=== PATIENT | female | born 1970 | race Caucasian/White ===

== ENCOUNTER 2017-03-27 16:56 | Emergency (ER) | payer BC ==
[~2017-03-27 16:56] MED LIST: ASAB PO; LAM250 PO; NITROSTAT0.4 MG SL; NORCO1 TA1 PO; PROTONIX PO; [UNRECOGNIZED DRUG - OTHER]
[2017-03-27 17:17] LABS: BASOPHILS 0.6 %; BASOPHILS ABSOLUTE 0.05 10/3/uL (0.0-0.16); EOSINOPHILS 5.4 %; EOSINOPHILS ABSOLUTE 0.47 10/3/uL (0.0-0.53); HEMATOCRIT 41.5 % (36.0-48.0); HEMOGLOBIN 13.8 g/dL (12.0-16.0); IMMATURE GRANULOCYTES 0.5 %; IMMATURE GRANULOCYTES ABSOLUTE 0.04 10/3/uL (0.0-0.11); LYMPHOCYTES ABSOLUTE 3.03 10/3/uL (0.67-4.30); MEAN CORPUS HGB CONC 33.3 g/dL (32.0-36.0); MEAN CORPUSCULAR HEMOGLOB 29.8 pg (26.0-34.0); MEAN PLATELET VOLUME 10.5 fL (9.2-13.0); MONOCYTES 6.5 %; MONOCYTES ABSOLUTE 0.56 10/3/uL (0.21-1.20); NEUTROPHILS ABSOLUTE 4.51 10/3/uL (2.02-8.40); PLATELET COUNT 226 10/3/uL (150-400); RED CELL COUNT 4.63 10/6/uL (4.0-5.6)
[2017-03-27 17:18] LABS: MANUAL DIFF NO %; MEAN CORPUSCULAR VOLUME 89.6 fL (80-100); WHITE BLOOD CELLS 8.7 10/3/uL (4.5-10.5)
[2017-03-27 17:26] LABS: PARTIAL THROMBO TIME 29.8 SEC (22.5-37.2); PROTIME (NOT ORD) 12.9 SEC (12.0-14.5)
[2017-03-27 17:34] LABS: BUN (BLOOD UREA NITROGEN) 16 MG/DL (6-23); CALCIUM, SERUM 8.9 MG/DL (8.5-10.4); CHEST PAIN PROFILE TAT 0 Hrs 20 Mins; CHLORIDE, SERUM 108 MMOL/L (96-112); CO2 (CARBON DIOXIDE) 28 MMOL/L (24-34); CREATININE 0.88 MG/DL (0.55-1.02); GFR AFRICAN AMERICAN 91 ML/MIN (>=60); GFR NON AFRICAN AMERICAN 79 ML/MIN (>=60); GLUCOSE, SERUM 86 MG/DL (60-99); POTASSIUM, SERUM 4.1 MMOL/L (3.5-5.3); SODIUM, SERUM 142 MMOL/L (135-148); TROPONIN I <0.02 NG/ML (<0.05)
[2017-04-13] MEDS ORDERED: LIOR10 PO (11:56)
[2017-04-13] MEDS ORDERED: IMDUR30 PO (11:57)
[2017-04-13] MEDS ORDERED: IBU800 (11:57)
[2017-04-13] MEDS ORDERED: PRINZIDE1 TA1 PO (11:58)
[2017-04-13] MEDS ORDERED: NITROSTAT0.4 MG SL (11:58)
[2017-04-13] MEDS ORDERED: MOBIC15 MG PO (11:58)
[2017-04-13] MEDS ORDERED: NORV5 PO (11:59)
== END 2017-03-27 20:24 | disposition home or self-care (01) ==
LOC: ER 16:56
PROVIDERS: Emergency Medicine
DX: M54.6 Pain in thoracic spine (principal); I10 Essential (primary) hypertension; F17.200 Nicotine dependence, unspecified, uncomplicated; Z88.5 Allergy status to narcotic agent; Z88.8 Allergy status to other drugs, medicaments and biological substances; Z79.82 Long term (current) use of aspirin; Z79.899 Other long term (current) drug therapy
CPT/HCPCS: 71020; 80048; 83690; 83735; 84484; 85025; 85610; 85730; 93005; 99285; A9270-GY